=== PATIENT | female | born 1945 | race Caucasian/White ===

== ENCOUNTER → 2016-09-05 | Outpatient (CLI) | payer MEDICARE, OTHER ==
--- NOTE | 2016-09-05 14:30 | REP ---
REASON: Pain. There is a subtle nondisplaced fracture involving the base of the 5th metatarsal. The bones are demineralized. There are degenerative changes seen throughout the foot. There is a large plantar calcaneal heel spur. IMPRESSION: 5th metatarsal fracture as described above. Signed by Tung Mccall DO 09/05/2016 04:21 P
== END ==
LOC: M ADAMS 13:35
PROVIDERS: ATTEND Physician Assistant Medical
DX: S96.111A Strain of muscle and tendon of long extensor muscle of toe at ankle and foot level, right foot, initial encounter (principal); S92.354A Nondisplaced fracture of fifth metatarsal bone, right foot, initial encounter for closed fracture; X58.XXXA Exposure to other specified factors, initial encounter; Y92.89 Other specified places as the place of occurrence of the external cause; Y93.89 Activity, other specified; Y99.8 Other external cause status

== ENCOUNTER → 2018-12-24 | Outpatient (CLI) | payer MEDICARE, BC ==
--- NOTE | 2018-12-24 10:20 | REP ---
BILATERAL SCREENING DIGITAL MAMMOGRAM WITH 3D TOMOSYNTHESIS: There are no palpable abnormalities or other breast complaints. The the patient states she had a clinical breast examination Jul, 2018. The the patient states she performs self-breast examinations 12 times per year. The Tyrer-Cuzick Score is: 3.6% . Comparison is 11/16/2013. There are scattered areas of fibroglandular density. There is no dominant mass, micro calcific cluster or architectural distortion that would indicate malignancy. There are no additional findings on 3D tomosynthesiss. There is no change from the prior study. Impression: BIRADS/ACR category 1 mammogram. Negative. Recommendation: Routine annual screening mammography. This mammogram was interpreted with the aid of a FDA approved computer-aided detection system. A. Negative mammogram reports should not delay biopsy if a dominant or clinically suspicious mass is present. B. Not all breast cancers are identified by mammography or tomosynthesis. C. Adenosis and dense breasts may obscure an underlying neoplasm. Patient letter M1. Electronically Signed by Richard Yanez MD 12/24/2018 10:11 A
== END ==
LOC: M WHC 08:59
PROVIDERS: ATTEND Family Medicine
DX: Z12.31 Encounter for screening mammogram for malignant neoplasm of breast (principal)

== ENCOUNTER → 2019-08-09 | Outpatient (CLI) | payer MEDICARE, BC ==
--- NOTE | 2019-08-09 15:38 | REP ---
REASON: Knee pain. No priors. FINDINGS: The compartments are symmetric and relatively well maintained. There is no acute fracture or destructive osseous lesion. The bones appear somewhat demineralized. Electronically Signed by Tung Mccall DO 08/09/2019 04:05 P
== END ==
LOC: M ADAMS 11:53
PROVIDERS: ATTEND Physician Assistant
DX: M25.562 Pain in left knee (principal)